=== PATIENT | male | born 1965 | race Caucasian/White ===

== ENCOUNTER 2017-02-25 03:02 | Emergency (ER) | payer OTHER ==
[2017-02-25] MEDS ORDERED: Ketorolac INJ* 30 MG/ML 1 ML VIAL IV PUSH ONE (03:18)
[2017-02-25] MEDS ORDERED: Dexamethasone IV* 4 MG/ML 1 ML (4 MG) IV SLOW PU ONE (03:18)
[2017-02-25] MEDS ORDERED: Morphine INJ* 4 MG/ML 1 ML CARPUJECT IV ONE ×3 (03:19→10:25)
[2017-02-25] MEDS ORDERED: Diazepam SYRINGE* 5 MG/ML 2 ML SYRINGE (10 MG total) IV ONE ×2 (03:19→03:58)
[2017-02-25] MEDS ORDERED: fentaNYL* 50 MCG/ML 2 ML VIAL (100 MCG VIAL) IV SLOW PU ONE (05:11)
[2017-02-25 06:21] LABS: Hematocrit 43 % (42-52); Hemoglobin 15.2 g/dl (14.0-18.0); Mean Corpuscular HGB Conc 35 g/dl (31-36); Mean Corpuscular Hemoglobin 35 pg (27-31); Mean Corpuscular Volume 97 fL (80-94); Mean Platelet Volume 7 um3 (7.4-10.4); Red Cell Distribution Width 13 % (10.5-15); White Blood Count 11.3 10^3/ul (3.5-10.8)
[2017-02-25 06:30] LABS: Albumin 4.2 g/dL (3.2-5.2); BUN/Creatinine Ratio 23.6 (8-20); Calcium 9.5 mg/dL (8.6-10.3); EGFR African American 116.4 (>60); EGFR Non-African American 90.5 (>60); Globulin 2.9 g/dL (2-4); Potassium 4.3 mmol/L (3.5-5.0); Total Bilirubin 0.8 mg/dL (0.2-1.0); Total Protein 7.1 g/dL (6.4-8.9)
[2017-02-25] MEDS ORDERED: oxyCODONE TAB* 5 MG TAB PO ONE ×2 (07:55→12:52)
--- NOTE | 2017-02-25 08:11 | RAD ---
Indication: Back pain radiation to the LEFT leg. Comparison: Abdomen only CT from August 09, 2004. Technique: Noncontrast CT lumbar sacral spine. Multiplanar reformation. Report: Low suspicion linear calcification is noted at the posterior lateral capsule of the LEFT kidney seen in association with a small subcapsular fluid collection unchanged July 2004 exam without concern likely sequela of remote trauma. Negative for paravertebral hematoma. Negative for fracture or spondylolysis at any level. T12-L1: Unremarkable disc level for age without acquired spinal stenosis. L1-L2: Unremarkable disc level for age without acquired spinal stenosis. L2-L3: Slight annular disc bulge. Negative for acquired spinal stenosis. L3-L4: Slight annular disc bulge. Negative for acquired spinal stenosis. L4-L5: Moderate disc space narrowing, degenerative spondylosis, and facet joint osteoarthritis with associated slight grade 1 degenerative anterolisthesis. In addition to uncovering of the intervertebral disc there is a mild annular disc bulge which along with severe facet ligamentous hypertrophic arthropathy results in moderately severe acquired central canal stenosis and moderate bilateral foraminal stenosis. L5-S1: Mild facet joint osteoarthritis. Negative for acquired spinal stenosis. IMPRESSION: At L4-L5 there is slight grade 1 degenerative anterolisthesis, moderately severe acquired central canal stenosis, and moderate bilateral foraminal stenosis.
--- NOTE | 2017-02-25 11:15 | RAD ---
INDICATION: Low back pain. COMPARISON: Comparison is made with a prior CT of the lumbar spine from February 25, 2017. TECHNIQUE: Axial and sagittal T1 and T2 and coronal T2-weighted images of the lumbar spine were obtained. FINDINGS: The vertebra are in normal alignment without evidence for fracture. There is a small T2 hyperintense lesion present in the left L5 superior articular process consistent with a subchondral cyst. There is also a T1 hypointense and T2 hyperintense lesion present within the superior portion of the sacrum on the left side measuring 2.0 x 1.0 cm in size with a sharp zone of transition. This corresponds with a hypodense lesion on the prior CT study. At the L3-L4 level there is a mild broad-based disc bulge and mild hypertrophic changes within the facet joints. No significant spinal canal or neural foraminal narrowing is seen. At the L4-L5 level there is a mild broad-based disc bulge and moderate to severe hypertrophic changes within the facet joints causing mild to moderate spinal canal narrowing. There is moderate bilateral neural foraminal narrowing. At the L5-S1 level the intervertebral disc appears normal. There are mild hypertrophic changes within the facet joints. No spinal canal or neural foraminal narrowing is seen. IMPRESSION: 1. MILD TO MODERATE DEGENERATIVE DISC DISEASE AND FACET OSTEOARTHRITIC CHANGES MOST PROMINENT AT THE L4-L5 LEVEL. AT THAT LEVEL THERE IS MILD TO MODERATE SPINAL CANAL NARROWING AND MODERATE BILATERAL NEURAL FORAMINAL NARROWING. 2. LOW SUSPICION T2 HYPERINTENSE LESION PRESENT WITHIN THE SACRUM ON THE LEFT SIDE. RECOMMEND A FOLLOW-UP OUTPATIENT BONE SCAN FOR FURTHER EVALUATION.
[2017-02-25 12:37] VITALS: BP 114/67
--- NOTE | 2017-02-25 13:04 | UC ---
Genevieve Elena Edward, scribed for Gonzalez Almanza MD on 02/25/17 at 0706 . Progress - Progress Note Progress Note: Pt signed out by Dr. Dozier pending MRI and dispo. Pt was reaching for a grocery bag and developed mild pack pain around one week ago. During the week it spread around his back to the front of his L upper leg down to his L knee, with some mild numbness. Yesterday the pain became severe and was at a 10/10 last night. Currently the pain is at a 6-7/10. PE - General: well-appearing, no pain distress Skin: warm, color reflects adequate perfusion, dry Head: normal Eyes: EOMI, RAKESH ENT: normal Neck: supple, nontender Respiratory: CTA, breath sounds present Cardiovascular: RRR Abdomen: soft, nontender Bowel: present Musculoskeletal: strength/ROM intact. Tender @ L upper outer thigh Neurological: normal, sensory/motor intact, A&O x3. Patellar reflexes good. Psychological: affect/mood appropriate PATIENT IMPROVED IN ED. ABLE TO MOVE THE LEFT LEG. NO NEUOLOGIC DEFICIT. RESULTS DISCUSSED WITH THE PATIENT TO INCLUDE THE BONE LESION. HE WILL F/U WITH HIS PMD; RETURN IF WORSE. DX LUMBAR RADICULOPATHY - Results/Orders Results/Orders: LUMBAR SPINE CT - At L4-L5 there is slight grade 1 degenerative anterolisthesis , moderately severe acquired central canal stenosis, and moderate bilateral foraminal stenosis. LUMBAR SPINE MRI - 1. MILD TO MODERATE DEGENERATIVE DISC DISEASE AND FACET OSTEOARTHRITIC CHANGES MOST PROMINENT AT THE L4-L5 LEVEL. AT THAT LEVEL THERE IS MILD TO MODERATE SPINAL CANAL NARROWING AND MODERATE BILATERAL NEURAL FORAMINAL NARROWING. 2. LOW SUSPICION T2 HYPERINTENSE LESION PRESENT WITHIN THE SACRUM ON THE LEFT SIDE. RECOMMEND A FOLLOW-UP OUTPATIENT BONE SCAN FOR FURTHER EVALUATION. Re-Evaluation - Re-Evaluation 1 Re-Evaluation Time: 12:45 Change: Improved Comment: Pt back pain improved. Discuss CT and MRI results, plan to d/c The documentation as recorded by the carmenibGenevieve khan Edward accurately reflects the service I personally performed and the decisions made by me, Gonzalez Almanza MD.
--- NOTE | 2017-02-25 19:42 | ED ---
Alesha Elena Rebecca, scribed for Momo Dozier MD on 02/25/17 at 0320 . Back Pain - HPI Summary HPI Summary: Pt is a 51 y/o M who presents to ED c/o left lumbar back pain. Pain began 10 days ago when the pt was lifting grocery bags out of his car. Initially, pain was moderate, described as "annoying but not bad" then 4 days ago it worsened and began radiating down the anterior aspect of the LLE. This morning, the pain significantly worsened and is currently severe, ranked 10/10. The prior day, Valium relieved symptoms but today it's not helping. Has also been taking Motrin TID. Sx aggravated by sitting and laying down, alleviated by standing up. Additionally c/o knee numbness and intermittent LLE numbness. Denies urinary or bowel symptoms and weakness. No prior similar episodes. Was evaluated on Thursday by Ana where he was given a Dx of sciatica and muscle relaxers. - History of Current Complaint Chief Complaint: EDBackInjuryPain Stated Complaint: LOWER BACK PAIN Hx Obtained From: Patient Onset/Duration: Lasting Days - 10 days, Still Present Back Pain Location: Is Discrete @ - Left lumbar back, Radiates To - Anterior aspect of LLE down to the knee Severity Initially: Moderate Severity Currently: Severe Pain Intensity: 10 Pain Scale Used: 0-10 Numeric Aggravating Symptom(s): Other - Sitting, laying Alleviating Symptom(s): Other - Standing Associated Signs And Symptoms: Positive: Numbness - Allergies/Home Medications Allergies/Adverse Reactions: Allergies Allergy/AdvReac Type Severity Reaction Status Date / Time No Known Allergies Allergy Verified 02/25/17 06:03 PMH/Surg Hx/FS Hx/Imm Hx Cardiovascular History: Reports: Hx Hypertension - ON MEDICATION FOR Respiratory History: Reports: Hx Sleep Apnea - current CPAP user GI History: Reports: Hx Gastroesophageal Reflux Disease - ON MEDICATION FOR Sensory History: Denies: Hx Contacts or Glasses, Hx Hearing Aid Opthamlomology History: Denies: Hx Contacts or Glasses - Surgical History Surgery Procedure, Year, and Place: Left knee surgery- MENISCUS REPAIR-[facility]. RIGHT KNEE ARTHROSCOPY-08/2013-[facility] Hx Anesthesia Reactions: Yes - 08/2013-SEVERE HEADACHE AND NECK PAIN- HAD A SPINAL PER PATIENT Infectious Disease History: No Infectious Disease History: Denies: Traveled Outside the [place] in Last 30 Days - Family History Known Family History: Positive: Hypertension - Social History Alcohol Use: Rare Substance Use Type: Reports: None Smoking Status (MU): Never Smoked Tobacco Have You Smoked in the Last Year: No Review of Systems Negative: Fever Positive: no symptoms reported Positive: Other - Left lumbar back pain Positive: Numbness - Knee numbness and intermittent LLE numbness. Negative: Weakness All Other Systems Reviewed And Are Negative: Yes Physical Exam - Summary Physical Exam Summary: VITAL SIGNS: Reviewed. GENERAL: ~Patient is a well-developed and nourished male. Patient is not in any acute respiratory distress. HEAD AND FACE: No signs of trauma. No ecchymosis, hematomas or skull depressions. No sinus tenderness. EYES: PERRLA, EOMI x 2, No injected conjunctiva, no nystagmus. EARS: Hearing grossly intact. Ear canals and tympanic membranes are within normal limits. MOUTH: Oropharynx within normal limits. NECK: Supple, trachea is midline, no adenopathy, no JVD, no carotid bruit, no c- spine tenderness, neck with full ROM. CHEST: Symmetric, no tenderness at palpation LUNGS: Clear to auscultation bilaterally. No wheezing or crackles. CVS: Regular rate and rhythm, S1 and S2 present, no murmurs or gallops appreciated. EXTREMITIES: No edema, no cyanosis or clubbing. Tenderness of his lumbosacral spine, more towards the left. Right straight leg test is negative, left straight leg test is positive at 0 degrees. Neuromuscularly intact. Deep tendon reflex present +2, bilateral sensation is intact. NEURO: Alert and oriented x 3. No acute neurological deficits. Speech is normal and follows commands. SKIN: Dry and warm RECTAL: Rectal tone is normal. Triage Information Reviewed: Yes Vital Signs On Initial Exam: Initial Vitals Temp Pulse Resp BP Pulse Ox 97.4 F 85 18 132/89 97 02/25/17 03:04 02/25/17 03:04 02/25/17 03:04 02/25/17 03:04 02/25/17 03:04 Vital Signs Reviewed: Yes Diagnostics - Vital Signs Vital Signs Temp Pulse Resp BP Pulse Ox 02/25/17 03:04 97.4 F 85 18 132/89 97 - Laboratory Lab Statement: Any lab studies that have been ordered have been reviewed, and results considered in the medical decision making process. - CT L-Spine CT CT Interpretation Completed By: Radiologist - No acute fracture or malalignment. Posterior disc bulge L4-L5 contributing to moderate canal stenosis and minimal bilateral neural foraminal stenosis. Multilevel facet arthropathy, worst at L4-L5. Capsular calcifications left kidney incidentally noted. Dr. Dozier reviewed this radiology report. Re-Evaluation - Re-Evaluation First Eval Re-Evaluation Time: 05:39 Comment: Explained the CT readings to him and that the pt will be in the ED to get an MRI at 0700. Back Pain Course/Dx - Course Assessment/Plan: Pt is a 51 y/o M who presents to ED c/o left lumbar back pain for 10 days, initially moderate, worsening 4 days ago and today. Pain radiates down the anterior aspect of the LLE. Yesterday, Valium relieved symptoms but today it's not helping. Has also been taking Motrin TID. Sx aggravated by sitting and laying down, alleviated by standing up. Additionally c/o knee numbness and intermittent LLE numbness. Denies urinary or bowel symptoms and weakness. No prior similar episodes. Was evaluated on Thursday by Ana where he was given a Dx of sciatica and muscle relaxers. CT L-Spine reveals o acute fracture or malalignment with posterior disc bulge L4-L5 contributing to moderate canal stenosis and minimal bilateral neural foraminal stenosis. Pt will be signed out to Dr. Almanza, pending disposition, awaiting MRI. Medications reviewed. - Diagnoses Provider Diagnoses: Lower back pain, Lumbar radiculopathy Discharge - Discharge Plan Condition: Stable Disposition: OTHER Discharge Disposition Comment: Pt will be signed out, pending disposition, awaiting MRI. Referrals: Christian Hodges MD [Primary Care Provider] - The documentation as recorded by the Alesha monge Rebecca accurately reflects the service I personally performed and the decisions made by me, Momo Dozier MD.
== END 2017-02-25 13:17 | disposition home or self-care (01) ==
LOC: ED 03:02
DX: M54.16 Radiculopathy, lumbar region (principal); M54.5 Low back pain
CPT/HCPCS: 36415; 72131; 72148; 80053; 85025; 85610; 85730; 96374; 96375; 99283; A9270-GY; J1100; J1885; J2270; J3010; J3360

== ENCOUNTER 2017-05-31 12:52 | Emergency (ER) | payer SELFPAY ==
[2017-05-31] MEDS ORDERED: Ondansetron INJ* 2 MG/ML VIAL IV ONE (13:19)
[2017-05-31] MEDS ORDERED: NS 0.9% 1000 ML* 1,000 ML IV ONE (13:19)
[2017-05-31] MEDS ORDERED: Morphine INJ* 4 MG/ML 1 ML SYRINGE (NEW SYRINGE VERSION) IV ONE (13:19)
[2017-05-31 13:49] LABS: ABS Basophils 0 10^3/ul (0-0.2); ABS Eosinophils 0.1 10^3/ul (0-0.6); ABS Lymphocytes 2.4 10^3/ul (1.0-4.8); ABS Monocytes 0.8 10^3/ul (0-0.8); ABS Neutrophils 7.2 10^3/ul (1.5-7.7); ABS Nucleated RBC 0 10^3/ul; Eosinophil % 0.6 % (0-6); Hematocrit 44 % (42-52); Hemoglobin 15.8 g/dl (14.0-18.0); Lymphocyte % 23.1 % (25-47); Mean Corpuscular HGB Conc 36 g/dl (31-36); Mean Corpuscular Hemoglobin 35 pg (27-31); Mean Corpuscular Volume 98 fL (80-94); Mean Platelet Volume 7 um3 (7.4-10.4); Nucleated Red Blood Cells % 0; Platelet Count 230 10^3/ul (150-450); Red Blood Count 4.54 10^6/ul (4.0-5.4); Red Cell Distribution Width 13 % (10.5-15); White Blood Count 10.4 10^3/ul (3.5-10.8)
--- NOTE | 2017-05-31 13:53 | RAD ---
INDICATION: Head trauma after falling 5 the COMPARISON: None. TECHNIQUE: Contiguous axial sections of the brain were obtained from the skull base to the vertex without contrast. FINDINGS: The ventricles, cisterns and sulci are within normal limits. The burkett-white matter differentiation is adequately maintained and there is no sulcal effacement. No significant focal abnormality or mass effect is present. There is no evidence for intracranial hemorrhage. No significant focal osseous abnormality is present. The visualized portion of the paranasal sinuses appear clear. The mastoid air cells are well aerated bilaterally. IMPRESSION: Normal CT of the brain.
[2017-05-31 13:57] LABS: INR 0.98 (0.77-1.02)
[2017-05-31 13:59] LABS: EGFR Non-African American 80.6 (>60)
--- NOTE | 2017-05-31 14:56 | RAD ---
INDICATION: Left shoulder and mid back pain after a fall 5 feet into a trench. COMPARISON: None. TECHNIQUE: Multidetector CT images of the chest, abdomen and pelvis were obtained from the lung apices to the ischial tuberosities without intravenous contrast but with oral contrast.. CHEST: The lungs are clear. There are no large pleural effusions. There is no mediastinal or hilar lymphadenopathy. The heart and major vascular structures are grossly normal in appearance. ABDOMEN & PELVIS: The liver, pancreas and adrenal glands are grossly normal in appearance. The gallbladder is normal. The spleen is enlarged measuring 15.4 cm in greatest axial dimension. There is hyperdense material along the posterior margin of the left kidney that appears to correspond to the appearance seen on the August 09, 2004 CT of the abdomen and pelvis. Kidneys are normal in appearance without focal mass, calcification or signs of hydronephrosis. Evaluation of the gastrointestinal tract is limited without oral contrast. The small and large bowel are not distended. There is no gross retroperitoneal or mesenteric lymphadenopathy. The pelvic viscera is normal in appearance. The abdominal aorta and iliac arteries are normal in course and diameter. No traumatic fractures are identified. IMPRESSION: 1. No bony fractures or evidence of acute solid organ injury is seen. 2. Splenomegaly similar in appearance to the August 09, 2004 CT examination.
--- NOTE | 2017-05-31 14:58 | RAD ---
INDICATION: Neck pain after a fall COMPARISON: None. TECHNIQUE: Axial source images were acquired with coronal and sagittal reformatting. FINDINGS: There is straightening of the normal cervical lordosis. The vertebral bodies and facet joints are otherwise appropriately aligned. There is no fracture or focal bony lesion. The canal and foramina appear widely patent. The odontoid and the atlantodental interval are normal. Mild degenerative changes include loss of intervertebral disc height and marginal osteophyte formation at the mid-level and lower cervical spine. The prevertebral soft tissues appear normal. The visualized soft tissue elements of the neck are normal. The visualized lung apices are clear. IMPRESSION: NONSPECIFIC STRAIGHTENING OF THE NORMAL CERVICAL LORDOSIS AND DEGENERATIVE CHANGES WITHOUT ACUTE FRACTURE OR DISLOCATION.
[2017-05-31] MEDS ORDERED: Tetan/Diph/Pertus SYR(Tdap)* 0.5 ML SYR(BOOSTRIX) use SYR IM ONE ×2 (15:40→15:41)
[2017-05-31] MEDS ORDERED: Bacitracin OINTMENT* 0.5% 0.5 oz TUBE ONE (15:42)
--- NOTE | 2017-05-31 15:44 | ED ---
Maeve Elena Elizabeth, scribed for Gonzalez Almanza MD on 05/31/17 at 1418 . Adult Trauma - HPI Summary HPI Summary: The patient is a 52 year old male presenting to the emergency department following a fall from 5-6 feet that occurred early this afternoon. While at work , the patient hit his head and neck causing him to lose his balance and fall. The patient complains of head, neck, chest, hip, and lower back pain. The patient denies losing consciousness but, per triage note, everything went black for a second. - History of Current Complaint Chief Complaint: EDTraumaMultiple Stated Complaint: FALL, LT SHOULDER PAIN Time Seen by Provider: 05/31/17 13:04 Hx Obtained From: Patient Mechanism of Injury: Fall - fall from 5-6 feet Onset/Duration: Started Minutes Ago, Still Present Onset of Pain: Immediate Onset Severity: Moderate Current Severity: Moderate Pain Intensity: 8 Pain Scale Used: 0-10 Numeric Location: Head, Neck, Chest, Back - lower back - Allergy/Home Medications Allergies/Adverse Reactions: Allergies Allergy/AdvReac Type Severity Reaction Status Date / Time No Known Allergies Allergy Verified 02/25/17 06:03 Home Medications: Home Medications Allopurinol TAB* [Zyloprim 300 MG TAB*] 300 mg PO DAILY 05/31/17 [History Confirmed 05/31/17] Bisoprolol/Hydrochlorothiazide [Ziac 5-6.25 mg-] 1 tab PO DAILY 05/31/17 [ History Confirmed 05/31/17] Ibuprofen TAB* [Advil TAB*] 400 mg PO BID PRN 05/31/17 [History Confirmed ] Multivitamin [Men's Multi-Vitamin] 1 each PO DAILY 05/31/17 [History Confirmed 05/31/17] Omeprazole CAP* [Prilosec CAP* 20 MG] 20 mg PO DAILY 05/31/17 [History Confirmed 05/31/17] PMH/Surg Hx/FS Hx/Imm Hx Cardiovascular History: Reports: Hx Hypertension - ON MEDICATION FOR Respiratory History: Reports: Hx Sleep Apnea - current CPAP user GI History: Reports: Hx Gastroesophageal Reflux Disease - ON MEDICATION FOR Sensory History: Denies: Hx Contacts or Glasses, Hx Hearing Aid Opthamlomology History: Denies: Hx Contacts or Glasses - Surgical History Surgery Procedure, Year, and Place: Left knee surgery- MENISCUS REPAIR-[facility]. RIGHT KNEE ARTHROSCOPY-08/2013-[facility] Hx Anesthesia Reactions: Yes - 08/2013-SEVERE HEADACHE AND NECK PAIN- HAD A SPINAL PER PATIENT Infectious Disease History: No Infectious Disease History: Denies: Traveled Outside the [place] in Last 30 Days - Family History Known Family History: Positive: Hypertension - Social History Alcohol Use: Rare Substance Use Type: Reports: None Smoking Status (MU): Never Smoked Tobacco Have You Smoked in the Last Year: No Review of Systems Positive: Chest Pain Musculoskeletal: Other - neck pain and lower back pain Positive: Headache All Other Systems Reviewed And Are Negative: Yes Physical Exam - Summary Physical Exam Summary: General: well-appearing, no pain distress Skin: warm, color reflects adequate perfusion, dry Head: Abrasion to occiput. Neck: Nontender to palpation. Eyes: EOMI, RAKESH ENT: normal Respiratory: CTA, breath sounds present Cardiovascular: RRR Abdomen: soft, nontender Bowel: present Musculoskeletal: strength/ROM intact, left shoulder tender to palpation, both hips tender to palpation of the iliac crest, abrasions to both knees. Abrasions on left 3rd and 4th fingers. Neurological: normal, sensory/motor intact, A&O x3 Psychological: affect/mood appropriate Triage Information Reviewed: Yes Vital Signs On Initial Exam: Initial Vitals Temp Pulse Resp BP Pulse Ox 98.2 F 92 16 134/115 97 05/31/17 12:55 05/31/17 12:55 05/31/17 12:55 05/31/17 12:55 05/31/17 12:55 Vital Signs Reviewed: Yes Diagnostics - Vital Signs Vital Signs Temp Pulse Resp BP Pulse Ox 05/31/17 14:00 79 12 126/76 98 05/31/17 13:47 18 05/31/17 13:46 131/80 05/31/17 13:28 86 14 97 05/31/17 13:08 17 137/86 05/31/17 12:55 98.2 F 92 16 134/115 97 - Laboratory Lab Results: Lab Results 05/31/17 05/31/17 05/31/17 Range/Units 13:07 13:07 13:07 WBC 10.4 (3.5-10.8) 10^3/ul RBC 4.54 (4.0-5.4) 10^6/ul Hgb 15.8 (14.0-18.0) g/dl Hct 44 (42-52) % MCV 98 H (80-94) fL MCH 35 H (27-31) pg MCHC 36 (31-36) g/dl RDW 13 (10.5-15) % Plt Count 230 (150-450) 10^3/ul MPV 7 L (7.4-10.4) um3 Neut % (Auto) 68.6 (38-83) % Lymph % (Auto) 23.1 L (25-47) % Horry % (Auto) 7.2 H (0-7) % Eos % (Auto) 0.6 (0-6) % Baso % (Auto) 0.5 (0-2) % Absolute Neuts (auto) 7.2 (1.5-7.7) 10^3/ul Absolute Lymphs (auto) 2.4 (1.0-4.8) 10^3/ul Absolute Monos (auto) 0.8 (0-0.8) 10^3/ul Absolute Eos (auto) 0.1 (0-0.6) 10^3/ul Absolute Basos (auto) 0 (0-0.2) 10^3/ul Absolute Nucleated RBC 0 10^3/ul Nucleated RBC % 0 INR (Anticoag Therapy) 0.98 (0.77-1.02) APTT 23.6 L (26.0-36.3) seconds Sodium 135 (133-145) mmol/L Potassium 3.6 (3.5-5.0) mmol/L Chloride 102 (101-111) mmol/L Carbon Dioxide 25 (22-32) mmol/L Anion Gap 8 (2-11) mmol/L BUN 12 (6-24) mg/dL Creatinine 0.98 (0.67-1.17) mg/dL Est GFR ( Amer) 103.7 (>60) Est GFR (Non-Af Amer) 80.6 (>60) BUN/Creatinine Ratio 12.2 (8-20) Glucose 104 H (70-100) mg/dL Lactic Acid (0.5-2.0) mmol/L Calcium 9.3 (8.6-10.3) mg/dL Magnesium 1.7 L (1.9-2.7) mg/dL Total Bilirubin 0.60 (0.2-1.0) mg/dL AST 35 (13-39) U/L ALT 34 (7-52) U/L Alkaline Phosphatase 64 (34-104) U/L Total Creatine Kinase 219 (10-223) U/L CK-MB (CK-2) 4.2 (0.6-6.3) ng/mL Troponin I 0.00 (<0.04) ng/mL C-Reactive Protein < 1.00 (< 5.00) mg/L Total Protein 7.1 (6.4-8.9) g/dL Albumin 4.1 (3.2-5.2) g/dL Globulin 3.0 (2-4) g/dL Albumin/Globulin Ratio 1.4 (1-3) Lipase 32 (11.0-82.0) U/L 05/31/17 Range/Units 13:07 WBC (3.5-10.8) 10^3/ul RBC (4.0-5.4) 10^6/ul Hgb (14.0-18.0) g/dl Hct (42-52) % MCV (80-94) fL MCH (27-31) pg MCHC (31-36) g/dl RDW (10.5-15) % Plt Count (150-450) 10^3/ul MPV (7.4-10.4) um3 Neut % (Auto) (38-83) % Lymph % (Auto) (25-47) % Horry % (Auto) (0-7) % Eos % (Auto) (0-6) % Baso % (Auto) (0-2) % Absolute Neuts (auto) (1.5-7.7) 10^3/ul Absolute Lymphs (auto) (1.0-4.8) 10^3/ul Absolute Monos (auto) (0-0.8) 10^3/ul Absolute Eos (auto) (0-0.6) 10^3/ul Absolute Basos (auto) (0-0.2) 10^3/ul Absolute Nucleated RBC 10^3/ul Nucleated RBC % INR (Anticoag Therapy) (0.77-1.02) APTT (26.0-36.3) seconds Sodium (133-145) mmol/L Potassium (3.5-5.0) mmol/L Chloride (101-111) mmol/L Carbon Dioxide (22-32) mmol/L Anion Gap (2-11) mmol/L BUN (6-24) mg/dL Creatinine (0.67-1.17) mg/dL Est GFR ( Amer) (>60) Est GFR (Non-Af Amer) (>60) BUN/Creatinine Ratio (8-20) Glucose (70-100) mg/dL Lactic Acid 2.1 H* (0.5-2.0) mmol/L Calcium (8.6-10.3) mg/dL Magnesium (1.9-2.7) mg/dL Total Bilirubin (0.2-1.0) mg/dL AST (13-39) U/L ALT (7-52) U/L Alkaline Phosphatase (34-104) U/L Total Creatine Kinase (10-223) U/L CK-MB (CK-2) (0.6-6.3) ng/mL Troponin I (<0.04) ng/mL C-Reactive Protein (< 5.00) mg/L Total Protein (6.4-8.9) g/dL Albumin (3.2-5.2) g/dL Globulin (2-4) g/dL Albumin/Globulin Ratio (1-3) Lipase (11.0-82.0) U/L Result Diagrams: 05/31/17 13:07 05/31/17 13:07 Lab Statement: Any lab studies that have been ordered have been reviewed, and results considered in the medical decision making process. - CT CT Brain CT Interpretation: No Acute Changes - IMPRESSION: Normal CT of the brain. Dr. Almanza has reviewed this report. CT Interpretation Completed By: Radiologist CT Chest/Abd/Pelvis CT Interpretation: No Acute Changes - IMPRESSION: 1. No bony fractures or evidence of acute solid organ injury is seen. 2. Splenomegaly similar in appearance to the August 09, [address] Almanza has reviewed this report. CT Interpretation Completed By: Radiologist CT Cervical Spine CT Interpretation: No Acute Changes - IMPRESSION: NONSPECIFIC STRAIGHTENING OF THE NORMAL CERVICAL LORDOSIS AND DEGENERATIVE CHANGES WITHOUT ACUTE FRACTURE OR DISLOCATION. Dr. Almanza has reviewed this report. CT Interpretation Completed By: Radiologist - EKG 13:47 Cardiac Rate: NL - 85 BPM EKG Rhythm: Sinus Rhythm ST Segment: Normal Ectopy: None Re-Evaluation - Re-Evaluation First Eval Re-Evaluation Time: 03:20 Change: Unchanged Comment: Discussed lab and imaging results with patient. Removed patient's cervical collar. Adult Trauma Course/Dx - Course Course Of Treatment: DISCUSSED RESULTS WITH PATIENT. F/U PMD; RETURN IF WORSE. - Diagnoses Provider Diagnoses: Head injury, Cervical strain, Blunt injury of chest, Blunt trauma to abdomen, Left shoulder pain, Hip pain, bilateral, Abrasion Discharge - Discharge Plan Condition: Stable Disposition: HOME Prescriptions: Cyclobenzaprine TAB* [Flexeril 10 MG TAB*] 10 mg PO TID PRN #10 tab PRN Reason: Pain HYDROcodone/ACETAMIN 5-325 MG* [Dell 5-325 TAB*] 1 tab PO Q4H PRN #15 tab MDD 6 PRN Reason: Pain Patient Education Materials: Cervical Strain (ED), Head Injury (ED), Contusion in Adults (ED), Abrasion (ED), Back Pain (ED), Shoulder Pain (ED), Hip Pain (ED) Forms: *Work Release Referrals: Christian Hodges MD [Primary Care Provider] - Additional Instructions: FOLLOW UP WITH YOUR DOCTOR. RETURN TO THE EMERGENCY DEPARTMENT FOR ANY WORSENING OF YOUR CONDITION OR QUESTIONS OR CONCERNS. YOUR BLOOD PRESSURE WAS ELEVATED TODAY; FOLLOW UP WITH YOUR PRIMARY CARE DOCTOR WITHIN ONE WEEK. The documentation as recorded by the Maeve monge Elizabeth accurately reflects the service I personally performed and the decisions made by me, Gonzalez Almanza MD.
[2017-05-31 16:09] VITALS: BP 138/78
[2017-05-31] MEDS ORDERED: Mupirocin 2% OINT* TUBE TOPICAL SCH (21:00)
== END 2017-05-31 16:08 | disposition home or self-care (01) ==
LOC: ED 12:52
DX: S09.90XA Unspecified injury of head, initial encounter (principal); S16.1XXA Strain of muscle, fascia and tendon at neck level, initial encounter; S29.9XXA Unspecified injury of thorax, initial encounter; S39.91XA Unspecified injury of abdomen, initial encounter; S80.212A Abrasion, left knee, initial encounter; S80.211A Abrasion, right knee, initial encounter; M25.512 Pain in left shoulder; M25.552 Pain in left hip; M25.551 Pain in right hip; W17.89XA Other fall from one level to another, initial encounter; Y92.9 Unspecified place or not applicable
CPT/HCPCS: 36415; 70450; 71250; 72125; 74176; 80053; 82550; 82553; 83605; 83690; 83735; 84484; 85025; 85610; 85730; 86140; 90471; 90715; 93005; 96361; 96374; 96375; 99283; A9270-GY; J2270; J2405